=== PATIENT | female | born 1970 | race Caucasian/White ===

== ENCOUNTER 2020-07-10 16:38 | Emergency (ER) | payer OTHER ==
[2020-07-10] MEDS ORDERED: CYCLOBENZAPRINE10 MG PO (19:54)
[2020-07-10] MEDS ORDERED: NAPROSYN500 MG PO (19:54)
== END 2020-07-10 20:08 | disposition home or self-care (01) ==
LOC: ER1 16:38
DX: S16.1XXA Strain of muscle, fascia and tendon at neck level, initial encounter (principal); S46.911A Strain of unspecified muscle, fascia and tendon at shoulder and upper arm level, right arm, initial encounter; Z79.899 Other long term (current) drug therapy; Z88.0 Allergy status to penicillin; V49.50XA Passenger injured in collision with unspecified motor vehicles in traffic accident, initial encounter; Y92.410 Unspecified street and highway as the place of occurrence of the external cause
CPT/HCPCS: 96372; 99283; J1885

== ENCOUNTER → 2020-07-20 | Outpatient (CLI) | payer OTHER, BC ==
[~2020-07-20] MED LIST: CYCLOBENZAPRINE10 MG PO; NAPROSYN500 MG PO
== END ==
LOC: KOH-I 13:15
DX: S46.011D Strain of muscle(s) and tendon(s) of the rotator cuff of right shoulder, subsequent encounter (principal); M54.5 Low back pain; M54.2 Cervicalgia
CPT/HCPCS: 72050; 72110; 73030; 73522

== ENCOUNTER 2020-10-07 06:57 | Inpatient (IN) | payer BC ==
[~2020-10-07] VITALS: Ht 165.1 cm; Wt 115.7 kg
[2020-10-07 08:17] LABS: HEMOGLOBIN 14.7 gm/dl (12.3-15.3); RED BLOOD COUNT 4.86 M/UL (4.00-5.10); WHITE BLOOD COUNT 6.7 K/UL (4.5-11.0)
[2020-10-07 08:40] LABS: BUN/CREATININE RATIO 14 (0-10)
[2020-10-07] MEDS ORDERED: CYCLOBENZAPRINE10 MG PO (10:42)
[2020-10-07] MEDS ORDERED: DOXYCYCLINE HY100 MG PO (11:49)
[2020-10-07] MEDS ORDERED: PREDNISONE50 MG PO (11:50)
[2020-10-07] MEDS ORDERED: PULMICORT0.5 MG/21 INH (11:50)
[2020-10-07] MEDS ORDERED: GABAPENTIN100 MG PO (11:51)
[2020-10-07] MEDS ORDERED: IBUPROFEN200 MG PO (11:52)
[2020-10-07] MEDS ORDERED: ASPIRIN325 MG PO (11:53)
[2020-10-07] MEDS ORDERED: TYLENOL EXTRA500 MG PO (11:53)
[2020-10-07] MEDS ORDERED: VITAMIN D3250 MC2 PO (11:54)
[2020-10-07] MEDS ORDERED: VITAMIN C1000 MG PO (11:54)
[2020-10-07] MEDS ORDERED: ZINC50 M1 PO (11:55)
[2020-10-07] MEDS ORDERED: PEPCID AC10 MG PO (11:55)
[2020-10-08 06:24] LABS: HEMOGLOBIN 13.6 gm/dl (12.3-15.3); RED BLOOD COUNT 4.54 M/UL (4.00-5.10); WHITE BLOOD COUNT 7.3 K/UL (4.5-11.0)
[2020-10-08 07:07] LABS: BUN/CREATININE RATIO 17 (0-10)
[2020-10-09 04:29] LABS: HEMOGLOBIN 13.5 gm/dl (12.3-15.3); RED BLOOD COUNT 4.52 M/UL (4.00-5.10); WHITE BLOOD COUNT 8.7 K/UL (4.5-11.0)
[2020-10-09 05:10] LABS: BUN/CREATININE RATIO 22 (0-10)
[2020-10-10 04:48] LABS: HEMOGLOBIN 13.9 gm/dl (12.3-15.3); RED BLOOD COUNT 4.66 M/UL (4.00-5.10)
[2020-10-10 04:52] LABS: WHITE BLOOD COUNT 5.1 K/UL (4.5-11.0)
[2020-10-10 05:44] LABS: BUN/CREATININE RATIO 24 (0-10)
[2020-10-11 03:21] LABS: HEMOGLOBIN 14.1 gm/dl (12.3-15.3); RED BLOOD COUNT 4.73 M/UL (4.00-5.10)
[2020-10-11 03:24] LABS: WHITE BLOOD COUNT 9.1 K/UL (4.5-11.0)
[2020-10-11 03:57] LABS: BUN/CREATININE RATIO 23 (0-10)
[2020-10-12 08:14] LABS: HEMOGLOBIN 14.4 gm/dl (12.3-15.3); RED BLOOD COUNT 4.8 M/UL (4.00-5.10)
[2020-10-12 08:38] LABS: BUN/CREATININE RATIO 28 (0-10)
[2020-10-13 08:26] LABS: WHITE BLOOD COUNT 14.9 K/UL (4.5-11.0)
[2020-10-13 08:31] LABS: BUN/CREATININE RATIO 25 (0-10)
[2020-10-14 09:06] LABS: HEMOGLOBIN 15.2 gm/dl (12.3-15.3); RED BLOOD COUNT 5.01 M/UL (4.00-5.10)
[2020-10-14 09:27] LABS: BUN/CREATININE RATIO 24 (0-10)
[2020-10-15 03:47] LABS: HEMOGLOBIN 15.1 gm/dl (12.3-15.3); RED BLOOD COUNT 5.05 M/UL (4.00-5.10); WHITE BLOOD COUNT 15.2 K/UL (4.5-11.0)
[2020-10-15 04:10] LABS: BUN/CREATININE RATIO 24 (0-10)
[2020-10-16 05:23] LABS: HEMOGLOBIN 15.9 gm/dl (12.3-15.3); RED BLOOD COUNT 5.25 M/UL (4.00-5.10); WHITE BLOOD COUNT 18.5 K/UL (4.5-11.0)
[2020-10-16 05:44] LABS: BUN/CREATININE RATIO 31 (0-10)
[2020-10-17 04:36] LABS: HEMOGLOBIN 14.7 gm/dl (12.3-15.3); RED BLOOD COUNT 4.81 M/UL (4.00-5.10); WHITE BLOOD COUNT 17.7 K/UL (4.5-11.0)
[2020-10-17 04:52] LABS: BUN/CREATININE RATIO 40 (0-10)
[2020-10-18 04:10] LABS: HEMOGLOBIN 14.3 gm/dl (12.3-15.3); RED BLOOD COUNT 4.75 M/UL (4.00-5.10); WHITE BLOOD COUNT 17.4 K/UL (4.5-11.0)
[2020-10-18 04:25] LABS: BUN/CREATININE RATIO 42 (0-10)
[2020-10-19 03:34] LABS: HEMOGLOBIN 12.6 gm/dl (12.3-15.3); RED BLOOD COUNT 4.28 M/UL (4.00-5.10)
[2020-10-19 03:43] LABS: WHITE BLOOD COUNT 10.4 K/UL (4.5-11.0)
[2020-10-19 03:44] LABS: BUN/CREATININE RATIO 35 (0-10)
[2020-10-19] MEDS ORDERED: BENZONATATE100 MG PO (12:24)
[2020-10-19] MEDS ORDERED: MEDROL DOSEPAK 24 MG PO (12:26)
[2020-10-19] MEDS ORDERED: PROAIR HFA8.5 GM INH (12:26)
[2020-10-19] MEDS ORDERED: ROBITUSSIN AC480 ML PO (12:26)
--- NOTE | 2020-10-19 12:44 | NUR ---
PATIENT IS WEENED DOWN ON [id number]. CURRENTLY O2 SAT IS 99%. ROOM AIR SAT IS 84%.
== END 2020-10-19 16:16 | disposition home or self-care (01) | DRG 871 ==
LOC: ER1 06:57 → CDU 10:07 → PROG CARE 10:07 → 2 EAST 10:07 → MED SURG 4 16:45 → PROG CARE 10-09 23:07 → 2 EAST 10-14 09:40 → PROG CARE 10-17 06:50
PROVIDERS: Internal Medicine; Physician Assistant; Physician Assistant Medical; ADMIT Internal Medicine
PROC: 3E0333Z Introduction of Anti-inflammatory into Peripheral Vein, Percutaneous Approach (ICD-10-PCS; principal; 2020-10-07)
PROC: XW033E5 Introduction of Remdesivir Anti-infective into Peripheral Vein, Percutaneous Approach, New Technology Group 5 (ICD-10-PCS; 2020-10-07)
PROC: 5A09557 Assistance with Respiratory Ventilation, Greater than 96 Consecutive Hours, Continuous Positive Airway Pressure (ICD-10-PCS; 2020-10-07)
PROC: 8E0ZXY6 Isolation (ICD-10-PCS; 2020-10-07)
PROC: XW033G5 Introduction of Sarilumab into Peripheral Vein, Percutaneous Approach, New Technology Group 5 (ICD-10-PCS; 2020-10-09)
PROC: B24BZZZ Ultrasonography of Heart with Aorta (ICD-10-PCS; 2020-10-15)
DX: A41.9 Sepsis, unspecified organism (principal); U07.1 COVID-19; J12.82 Pneumonia due to coronavirus disease 2019; J80 Acute respiratory distress syndrome; J15.9 Unspecified bacterial pneumonia; Z68.41 Body mass index [BMI] 40.0-44.9, adult; R94.5 Abnormal results of liver function studies; F41.9 Anxiety disorder, unspecified; E66.01 Morbid (severe) obesity due to excess calories; N32.89 Other specified disorders of bladder; I07.1 Rheumatic tricuspid insufficiency; Z79.82 Long term (current) use of aspirin; Z79.899 Other long term (current) drug therapy; Z79.52 Long term (current) use of systemic steroids; Z88.1 Allergy status to other antibiotic agents; Z83.3 Family history of diabetes mellitus; Z82.49 Family history of ischemic heart disease and other diseases of the circulatory system; Z88.0 Allergy status to penicillin
CPT/HCPCS: ECHO; 36415; 36600; 71045; 71046; 80048; 80053; 82550; 82553; 82803; 83735; 83874; 84484; 84703; 85025; 85027; 86140; 87040; 87205; 93005; 93306; 94640; 94660; 94664; 94760; 99285; J1100; J1205; J1650; J1940; J1956; J2060; J7030; J7050; U0002

== ENCOUNTER → 2020-11-10 | Outpatient (CLI) | payer BC ==
[~2020-11-10] MED LIST changes: +ASPIRIN325 MG PO; +BENZONATATE100 MG PO; +DOXYCYCLINE HY100 MG PO; +GABAPENTIN100 MG PO; +IBUPROFEN200 MG PO; +MEDROL DOSEPAK 24 MG PO; +PEPCID AC10 MG PO; +PREDNISONE50 MG PO; +PROAIR HFA8.5 GM INH; +PULMICORT0.5 MG/21 INH; +ROBITUSSIN AC480 ML PO; +TYLENOL EXTRA500 MG PO; +VITAMIN C1000 MG PO; +VITAMIN D3250 MC2 PO; +ZINC50 M1 PO
== END ==
LOC: EXRD 15:44
DX: Z09 Encounter for follow-up examination after completed treatment for conditions other than malignant neoplasm (principal); Z86.16 Personal history of COVID-19; J98.4 Other disorders of lung
CPT/HCPCS: 71046

== ENCOUNTER → 2021-07-07 | Emergency (ER) | payer BC ==
[~2021-07-07] MED LIST changes: +CEPHALEXIN500 M1 PO; +LISINOPRIL10 MG PO
[2021-07-07 13:34] LABS: HEMOGLOBIN 15.4 gm/dl (12.3-15.3); RED BLOOD COUNT 4.97 M/UL (4.00-5.10); WHITE BLOOD COUNT 12.2 K/UL (4.5-11.0)
[2021-07-07 14:18] LABS: BUN/CREATININE RATIO 23 (0-10)
== END | disposition home or self-care (01) ==
LOC: ER1 11:00
PROVIDERS: Physician Assistant
DX: I10 Essential (primary) hypertension (principal); N39.0 Urinary tract infection, site not specified; R09.81 Nasal congestion; R05.9 Cough, unspecified; Z86.16 Personal history of COVID-19; Z88.0 Allergy status to penicillin; Z79.899 Other long term (current) drug therapy
CPT/HCPCS: 71045; 80053; 81001; 82550; 82553; 84484; 84703; 85025; 93005; 99285